=== PATIENT | male | born 1965 | race Caucasian/White ===

== ENCOUNTER 2018-12-01 08:12 | Outpatient (RCR) ==
[2015-10-04 18:14] VITALS: BMI 24.3
--- NOTE | 2018-12-08 10:49 | RS.OPPTEV2 ---
Date of Note: 12/01/18 Visit #: 1 Number of visits approved by Insurance: NA Date of Evaluation: 12/01/18 Payer Source: Insurance Surgery Performed?: No Treatment Diagnosis: Right knee pain History of Condition/Mechanism of Injury:: Patient states that his disease is genetic and all of his family have been dx with ataxia. He sees a neurologist in [place], [place] and was dx with spinocerebellar ataxia type 3. His is unable to work. Prior Level of Function.....Patient was independent with: ADL's, Self Care, Work /Vocation, Caregiving, Ambulation/Mobility, Community Integration/Access Functional Limitations: Ambulation, Community Access/Integration Current Subjective/complaints:: Mr. Carrillo states his right knee is weak. States he has no knee pain now. He received cortisone shots in his knees 6 weeks ago and it has made a huge difference in his pain. States he was told that he has meniscus tears in both knees. He is very active, walking and riding a bike daily. He does not wear any type of knee brace or support. States he has not fallen in quite a while. Treatment Side (optional): Right Medical History Medical History: Other Medical History Comments:: Colitis and SCA-3 Smoking Status: Never smoker Hx Home Medications: Lialda, cholesterol meds Patient's Goals: His goal is to gain strength in the right knee and maintain his level of function. Pain Assessment - Pain Description Pain Location: No pain Functional Outcome Measure LE Functional Scale: 47 (47/80= 41.25% impairment) Other: Most of Mr. Carrillo's impairments on LE functional scale are due to SCA. - G Codes & Severity Modifier G Codes & Modifier: NA Source of G Code score: NA Gait - Gait Pattern Gait Comments: Mr. Carrillo walks with an ataxic gait, without an assistive device. He deviates from a straight path, but demonstrates no loss of balance while in the department. - Left Knee Strength Left Knee Extension: 5 Normal Left Knee Flexion: 5 Normal Comments: Left hip strength 5/5 throughout. - Right Knee Strength Right Knee Extension: 5 Normal Right Knee Flexion: 5 Normal Comments: Right hip strength 5/5 throughout. - Special Tests Knee Anterior Drawer Test: Negative Left, Negative Right Knee Posterior Drawer Test: Negative Left, Negative Right Knee Valgus Stress Test: Negative Left, Negative Right Knee Varus Stress Test: Negative Left, Negative Right Knee Apley Compression Test: Negative Left, Negative Right Patella Apprehension Test: Negative Left, Negative Right Patellar Compression Test: Negative Left, Negative Right Palpation Comments:: Reports no tenderness with palpation to either knee joint. Sensation - Sensation Right Lower Extremity: Intact/Normal Left Lower Extremity: Intact/Normal Coordination - Tests Bilateral Heel to Miranda: Mild Deviation Toe Tapping: Mild Deviation (with increased speed) Additional Comments: Additional Comments: SLR to 40-45 degrees bilaterally. Trunk strength Good. Interventions - Exercise/Activities/Manual Therapy Exercises/Activities: Mr. Carrillo instructed in HEP of SLRs, SAQ's, HS curls. Patient has ankle weights at home. Advised to use the ankle weights with the exercises. Also demonstrated planks and advised he try to work up to 20-30 second hold to improve core strength. Also discussed the tightness in his Hamstrings and the need for regular HS stretching . Total minutes of Exercise: 15 mins Manual Therapy: na - Objective Findings Observations,measurements,etc.: Strength testing on [employer]: Isokinetic Activity : Left knee 60 deg/sec 35.4 ft/lbs Quads, 18 fl/lbs Hamstrings. Right knee 60 deg/sec 29.6 ft/lbs Quads, 7.8 ft/lbs Hamstrings. Left knee 30 deg/sec 53.1 ft/lbs Quads, 18.9 ft/lbs Hamstrings. Right knee 30 deg/sec 59.1 ftlbs Quads, 13.9 ft/lbs Hamstrings - Charges Timed Code Treatment Minutes: 25 mins Total Treatment Time: 55 mins Procedures billed for this date of service:: EVAL medium, EX EVALUATION COMPLEXITY LEVEL EVALUATION COMPLEXITY LEVEL: HISTORY: Medium (SCA), EXAM OF BODY SYSTEMS: Medium , CLINICAL PRESENTATION: Medium, CLINICAL DECISION MAKING: Medium Assessment Assessment: Mr. Carrillo presents to therapy with a diagnosis of right knee pain. Today he reports no knee pain. States pain has resolved since having cortisone injection six weeks ago. He exhibits 5/5 muscle strength at the hips and knees. Right knee quad strength shows 5-6 ft/lbs of force greater than the left at 30 deg/sec Isokinetic testing. He is very active and motivated to maintain his strength to avoid progression of SCA. Patient agrees to just work on a HEP for knee strengthening along with his other activities of walking and riding a bike frequently. Patient had expressed concern over having a co-pay with having to attend therapy visits. Patient Education: Education of diagnosis, Body/Joint mechanics, Home Exercise Program, Education of Plan of Care Desktop Architect Goals Goal #1: Patient independent in HEP. 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
== END 2018-12-10 23:59 ==
PROVIDERS: ATTEND Orthopaedic Surgery
DX: M25.561 Pain in right knee (principal)